=== PATIENT | female | born 1990 ===

== ENCOUNTER 2021-09-06 12:30 | Inpatient (IN) | payer OTHER ==
[~2021-09-06] VITALS: Ht 162.6 cm; Wt 79.8 kg
[2021-09-11] MEDS ORDERED: PRENATAL TABLE1 EAC3 PO (06:38)
[2021-09-11] MEDS ORDERED: DOXYLAMINE-PYR1 EACH PO (06:38)
== END 2021-09-13 14:49 | disposition home or self-care (01) | DRG 807 ==
LOC: LDR 09-11 06:31 → OB/GYN 09-11 06:31
PROVIDERS: ADMIT Obstetrics & Gynecology; ATTEND Obstetrics & Gynecology
PROC: 10E0XZZ Delivery of Products of Conception, External Approach (ICD-10-PCS; principal; 2021-09-11)
PROC: 0W8NXZZ Division of Female Perineum, External Approach (ICD-10-PCS; 2021-09-11)
PROC: 0UQMXZZ Repair Vulva, External Approach (ICD-10-PCS; 2021-09-11)
PROC: 4A1HXCZ Monitoring of Products of Conception, Cardiac Rate, External Approach (ICD-10-PCS; 2021-09-11)
DX: O70.0 First degree perineal laceration during delivery (principal); Z37.0 Single live birth; Z3A.39 39 weeks gestation of pregnancy; Z20.822 Contact with and (suspected) exposure to COVID-19